=== PATIENT | male | born 1970 | race Two or more races ===

== ENCOUNTER 2020-09-11 16:04 | Inpatient (IN) | payer MEDICAID ==
[~2020-09-11] VITALS: Ht 167.6 cm; Wt 74.8 kg
[2020-09-11 16:10] VITALS: BP 142/80
[2020-09-11] MEDS ORDERED: dexAMETHasone 10mg/ml Inj IV ONE (16:15)
--- NOTE | 2020-09-11 16:20 | Emergency Room Report ---
History of Present Illness General Chief Complaint: Fever Source: Patient (Neeraj Medina) Present Illness HPI 49-year-old male who reports not having any past medical history brought in by paramedics due to SOB and reports that is Covid positive beginning of August 2020. Patient reports that he has been having a cough for several weeks now which has been subsiding Robitussin however has been feeling short of breath for 5 days and started feeling worse today. Denies any fever and chills, congestion at this time. Reports few bouts of nonbloody diarrhea in the past few days. Other than retesting has not taken any medication. Denies tobacco smoke, drug use, alcohol intake. Denies recent travel. Reports that has been self isolating during this whole time. Patient appears to have oxygenation of 94% room air, first placed on nasal cannula and was then changed to nonrebreather. 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 COVID-19 Screening: Positive COVID-19 COVID-19 Testing Source: nasal (Neeraj Medina) Patient History Past Medical History: see triage record Past Surgical History: none Pertinent Family History: none Immunizations: UTD Reviewed Nursing Documentation: PMH: Agreed; PSxH: Agreed (Neeraj Medina) Review of Systems All Other Systems: negative except mentioned in HPI (Neeraj Medina) Physical Exam Vital Signs Date Time Temp Pulse Resp B/P (MAP) Pulse Ox O2 Delivery O2 Flow Rate FiO2 09/11/20 16:01 99.9 108 20 142/80 (100) 94 Nasal Cannula Sp02 EP Interpretation: abnormal - O2 sat 94% General Appearance: no apparent distress, alert, GCS 15, non-toxic Head: normocephalic, atraumatic Eyes: bilateral eye normal inspection, bilateral eye PERRL ENT: hearing grossly normal, normal pharynx, no angioedema, normal voice Neck: full range of motion, supple/symm/no masses Respiratory: chest non-tender, lungs clear, normal breath sounds, speaking full sentences Cardiovascular #1: regular rate, rhythm, no edema Cardiovascular #2: 2+ carotid (R), 2+ carotid (L), 2+ radial (R), 2+ radial (L), 2+ dorsalis pedis (R), 2+ dorsalis pedis (L) Gastrointestinal: normal bowel sounds, non tender, soft, non-distended, no guarding, no rebound Rectal: deferred Genitourinary: no CVA tenderness Musculoskeletal: back normal, no calf tenderness Neurologic: alert, motor strength/tone normal, oriented x3, sensory intact, responsive, speech normal Skin: no rash Lymphatic: no adenopathy (Neeraj Medina) Procedures Critical Care Time Critical Care Time Total critical care time; approximately [45] minutes. Due to a high probability of clinically significant, life threatening deterioration, the patient required my highest level of preparedness to intervene emergently and I personally spent this critical care time directly and personally managing the patient. This critical care time included obtaining a history; examining the patient; pulse oximetry; ordering and reviewing of studies; arranging urgent treatment with development of a management plan; evaluation of patient's response to treatment; frequent reassessment; and, discussions with other providers. This critical care time was performed to assess and manage the high probability of imminent, life-threatening deterioration that could result in multiorgan failure it was exclusive of separate billable procedures and treating other patients and teaching time. Please see MDM section and the rest of the note for further information on patient assessment and treatment. (Neeraj Medina) Medical Decision Making PA Attestation All diagnoses and treatment plans were reviewed and discussed with my supervising physician Dr. Dias (Neeraj Medina) PA Attestation I participated in the care of this patient along with SANJAY Bedoya Briefly, 49-year-old male with no reported medical history presenting for respiratory distress and hypoxia. He arrives by EMS from home. Tested positive for COVID-19 on 09/02. Worsening respiratory symptoms. Chest x-ray shows diffuse bilateral infiltrates. Rapid COVID-19 swab is negative though all inflammatory markers are positive as is D-dimer. Patient given Lovenox, antibiotics, dexamethasone, 30 cc/kg IV fluid bolus for elevated lactate at 3.10. Initial blood gas showed mild hypoxemia though for work of breathing and diffuse infiltrates the patient was started on BiPAP. He will be admitted to panel physician, Dr. Petersen, to the SDU. (Antonio Dias MD) Diagnostic Impression: Primary Impression: Pneumonia due to COVID-19 virus Additional Impression: Hypoxia ER Course 49-year-old male who reports not having any past medical history brought in by paramedics due to SOB and reports that is Covid positive beginning of August 2020. Patient reports that he has been having a cough for several weeks now which has been subsiding Robitussin however has been feeling short of breath for 5 days and started feeling worse today. Denies any fever and chills, congestion at this time. Reports few bouts of nonbloody diarrhea in the past few days. Other than retesting has not taken any medication. Denies tobacco smoke, drug use, alcohol intake. Denies recent travel. Reports that has been self isolating during this whole time. Patient appears to have oxygenation of 94% room air, first placed on nasal cannula and was then changed to nonrebreather. Denies pleuritic chest pain Ddx considered but are not limited to: Respiratory distress due to Covid, bronchitis, PNA, URI viral, bacterial bronchitis Vital signs: are WNL, pt. is afebrile H&PE are most consistent with: Hypoxia, covid PNA ORDERS: ER Covid order set ED INTERVENTIONS: NS bolus, dexamethasone, Rocephin, azithromycin, Lovenox Patient was admitted with diagnosis of Covid pneumonia, hypoxia to Dr. Petersen under supervision of : Arun pt stable at time of admission (Neeraj Medina) EKG Diagnostic Results Rate: normal Rhythm: NSR ST Segments: no acute changes Other Impression No acute ST changes ASA given to the pt in ED: No (Neeraj Medina) Chest X-Ray Diagnostic Results Chest X-Ray Diagnostic Results : Chest X-Ray Ordered: Yes # of Views/Limited/Complete: 1 View Indication: Shortness of Breath EP Interpretation: Yes PA Xray: Interpretation reviewed, by supervising MD, and agrees with findings. Interpretation: other - PNA Impression: Other - PNA Electronically Signed by: Neeraj GRACE Scribe Text FINDINGS: Lungs: Extensive airspace opacities throughout the lungs bilaterally. Pleural space:No pleural effusion. No pneumothorax. Heart:Unremarkable. No cardiomegaly. Bones/joints:Unremarkable. IMPRESSION: Extensive airspace opacities throughout the lungs bilaterally. Appearance is concerning for widespread infection or alveolar edema. Radiologist: Gabriel Nava MD Electronically Signed: 09/11/20 17:07 Phone: [phone] (Neeraj Medina) Last Vital Signs Date Time Temp Pulse Resp B/P (MAP) Pulse Ox O2 Delivery O2 Flow Rate FiO2 09/11/20 16:01 99.9 108 20 142/80 (100) 94 Nasal Cannula (Neeraj Medina) Disposition: ADMITTED INPATIENT Condition: Serious Neeraj Medina Sep 11, 2020 16:20 Antonio Dias MD Sep 11, 2020 17:45
[2020-09-11 16:48] LABS: HEMATOCRIT 40.9 % (42.0-52.0); HEMOGLOBIN 13.8 G/DL (14.2-18.0); MEAN CORPUSCULAR VOLUME 89 FL (80-99); PLATELET COUNT 169 K/UL (150-450); RED BLOOD COUNT 4.61 M/UL (4.70-6.10); RED CELL DISTRIBUTION WIDTH 11.9 % (11.6-14.8); WHITE BLOOD COUNT 6.9 K/UL (4.8-10.8)
[2020-09-11 16:49] LABS: APPEARANCE,URINE SLIGHTLY CLOUDY; BASOPHILS % (AUTO) 0.4 % (0.0-2.0); BILIRUBIN, URINE NEGATIVE (NEGATIVE); EOSINOPHILS % (AUTO) 0.1 % (0.0-3.0); GLUCOSE, URINE (UA) 4+ (NEGATIVE); KETONES,URINE 2+ (NEGATIVE); LEUKOCYTE ESTERASE ,URINE NEGATIVE (NEGATIVE); LYMPHOCYTES % (AUTO) 8.4 % (20.0-45.0); MONOCYTES % (AUTO) 3.7 % (1.0-10.0); NEUTROPHILS % (AUTO) 87.4 % (45.0-75.0); NITRITE,URINE NEGATIVE (NEGATIVE); PH,URINE 6 (4.5-8.0); PROTEIN,URINE 3+ (NEGATIVE); UROBILINOGEN,URINE 4 MG/DL (0.0-1.0)
[2020-09-11 16:50] LABS: COLOR,URINE YELLOW
[2020-09-11] MEDS ORDERED: cefTRIAXone 1 GM in NS 55 ML IVPB ONE (17:00)
[2020-09-11] MEDS ORDERED: Azithromycin 500 MG in NS 275 ML IV ONE (17:00)
[2020-09-11 17:02] LABS: ANION GAP 9 mmol/L (5-15); BLOOD UREA NITROGEN 11 mg/dL (7-18); CALCIUM 7.7 MG/DL (8.5-10.1); CARBON DIOXIDE 26 MMOL/L (21-32); CHLORIDE 97 MMOL/L (98-107); CREATININE 1.1 MG/DL (0.55-1.30); POTASSIUM 3.4 MMOL/L (3.5-5.1); SODIUM 132 MMOL/L (136-145)
--- NOTE | 2020-09-11 17:08 | Diagnostic Imaging Report ---
EXAM: XR Chest, 1 View CLINICAL HISTORY: SOB TECHNIQUE: Frontal view of the chest. COMPARISON: No relevant prior studies available. FINDINGS: Lungs: Extensive airspace opacities throughout the lungs bilaterally. Pleural space: No pleural effusion. No pneumothorax. Heart: Unremarkable. No cardiomegaly. Bones/joints: Unremarkable. IMPRESSION: Extensive airspace opacities throughout the lungs bilaterally. Appearance is concerning for widespread infection or alveolar edema.
[2020-09-11 17:33] LABS: ALANINE AMINOTRANSFERASE 46 U/L (12-78); ALBUMIN 2.3 G/DL (3.4-5.0); ALBUMIN/GLOBULIN RATIO 0.5 (1.0-2.7); ALKALINE PHOSPHATASE 52 U/L (46-116); ASPARTATE AMINO TRANSFERASE 62 U/L (15-37); BILIRUBIN,TOTAL 0.7 MG/DL (0.2-1.0); CKMB 1.1 NG/ML (0.0-3.6); CREATINE KINASE 330 U/L (26-308); FERRITIN > 2000 NG/ML (8-388); LACTATE DEHYDROGENASE 822 U/L (81-234)
[2020-09-11] MEDS ORDERED: Enoxaparin 40mg Inj SUBQ SCH (17:45)
[2020-09-11] MEDS ORDERED: Sodium Chloride 2,200 ML IVLG ONE (17:45)
[2020-09-11] MEDS ORDERED: Enoxaparin 40mg Inj SUBQ ONE (18:00)
[2020-09-11 19:18] VITALS: BP 146/78
[2020-09-11] MEDS ORDERED: Acetaminophen 500mg (ES) tab ORAL PRN (20:15)
[2020-09-11] MEDS ORDERED: Milk of Magnesia 30ml Ud ORAL PRN (20:15)
[2020-09-11] MEDS ORDERED: Loading Dose:Remdesivir 200mg/NS 210ml IV SCH ×2 (22:00)
[2020-09-12] VITALS (7 sets, daily range): BP systolic 115–135; BP diastolic 61–88
[2020-09-12 05:36] LABS: HEMOGLOBIN 13.3 G/DL (14.2-18.0); MEAN CORPUSCULAR VOLUME 92 FL (80-99); PLATELET COUNT 168 K/UL (150-450); RED BLOOD COUNT 4.25 M/UL (4.70-6.10); WHITE BLOOD COUNT 6.3 K/UL (4.8-10.8)
[2020-09-12 05:37] LABS: BASOPHILS % (AUTO) 0.1 % (0.0-2.0); LYMPHOCYTES % (AUTO) 10.1 % (20.0-45.0); MONOCYTES % (AUTO) 3.5 % (1.0-10.0); NEUTROPHILS % (AUTO) 86.3 % (45.0-75.0)
[2020-09-12 06:06] LABS: ALANINE AMINOTRANSFERASE 43 U/L (12-78); ALBUMIN 2.1 G/DL (3.4-5.0); ALBUMIN/GLOBULIN RATIO 0.5 (1.0-2.7); ALKALINE PHOSPHATASE 49 U/L (46-116); ANION GAP 9 mmol/L (5-15); ASPARTATE AMINO TRANSFERASE 56 U/L (15-37); BILIRUBIN,TOTAL 0.6 MG/DL (0.2-1.0); BLOOD UREA NITROGEN 9 mg/dL (7-18); CALCIUM 7.4 MG/DL (8.5-10.1); CARBON DIOXIDE 25 MMOL/L (21-32); CHLORIDE 104 MMOL/L (98-107); CREATININE 0.9 MG/DL (0.55-1.30); POTASSIUM 3.8 MMOL/L (3.5-5.1); SODIUM 137 MMOL/L (136-145)
--- NOTE | 2020-09-12 09:15 | History and Physical Report ---
DATE OF ADMISSION: 09/11/2020 CHIEF COMPLAINT: COVID-19 pneumonia. HISTORY OF PRESENT ILLNESS: The patient is a 49-year-old male. He has no past medical history. Apparently developed cough and fevers 5 days ago. He went to go get tested COVID and was positive. He did well until several days prior to admission but when he began to develop worsening shortness of breath and cough he presented to the emergency room where he had x-ray with diffuse pulmonary infiltrates. He required supplemental oxygen, eventually on BiPAP, and is now admitted for further evaluation and care. PAST MEDICAL HISTORY: None. PAST SURGICAL HISTORY: None. CURRENT MEDICATIONS: None. FAMILY HISTORY: None. SOCIAL HISTORY: Negative for tobacco, ethanol, or drugs. REVIEW OF SYSTEMS: Negative except for cough, fevers, and shortness of breath. PHYSICAL EXAMINATION: VITAL SIGNS: Temperature 97.2, pulse 86, respirations 22, blood pressure 116/62. GENERAL: The patient is well-developed, no apparent distress. HEART: Regular rate and rhythm. LUNGS: Clear. ABDOMEN: Soft, nontender, and nondistended. EXTREMITIES: Without clubbing, cyanosis, or edema. LABORATORY DATA: Sodium 132, potassium 3.4. greater than 2000. C-reactive protein was 36. Chest x-ray showed bilateral infiltrates. ASSESSMENT: This is a 49-year-old male with no past medical history who presents with hypoxic respiratory failure and COVID-19 pneumonia. PLAN: IV Remdesivir and steroids, BiPAP and supplemental oxygen as needed. DVT and stress ulcer prophylaxes. Melecio Petersen M.D. DR: Sherrie JOB#: [id number] CC:
[2020-09-12] MEDS: Enoxaparin 40mg Inj SUBQ SCH (09:16)
--- NOTE | 2020-09-12 14:44 | Consultation ---
DATE OF CONSULTATION: 09/12/2020 INFECTIOUS DISEASES CONSULTATION CONSULTING PHYSICIAN: Berta Sommer MD REFERRING PHYSICIAN: Melecio Petersen MD REASON FOR CONSULTATION: COVID-19 pneumonia. HISTORY OF PRESENTING ILLNESS: This is a 49-year-old gentleman with no past medical history, who developed a cough and fevers. He went to get tested for COVID and it was positive. He started having increasing shortness of breath and cough. He was found to have a pneumonia. Now, he is on a BiPAP and an Infectious Diseases consultation has been obtained for antibiotics. PAST MEDICAL HISTORY: Nothing significant. SOCIAL HISTORY: He does not smoke, drink, or use drugs. FAMILY HISTORY: Unknown. REVIEW OF SYSTEMS: Unable to obtain currently. MEDICATIONS: As an inpatient, he was started on remdesivir yesterday, enoxaparin, dexamethasone, milk of magnesia, Zofran, Tylenol. ALLERGIES: No known drug allergies. PHYSICAL EXAMINATION: VITAL SIGNS: Temperature of 96.3, T-max of 99.9, pulse of 89, respiratory rate 24, blood pressure 115/72, O2 saturation of 100% on BiPAP of 100%. Examination deferred due to COVID-19. LABORATORY AND DIAGNOSTIC DATA: White count 6.3, hemoglobin 13.3, hematocrit 39, MCV 92, platelet count of 168 with neutrophils of 86%. Sodium 137, potassium 3.8, chloride 104, bicarb 25, BUN 9, creatinine 0.9, glucose 187, calcium 7.4. Total bilirubin 0.6, AST 56, ALT 43, and alkaline phosphatase 49. Total protein 6.7, albumin 2.1. Troponin 0. CK-MB 0.3, CK of 330. LDH 822. Lipase of 289. UA is showing 0 to 2 white cells. COVID-19 test on 09/11/2020 is negative here. Chest x-ray is showing extensive airspace opacities throughout the lungs bilaterally concerning for infection or alveolar edema. ASSESSMENT: This is a 49-year-old gentleman with no significant past medical history, who comes in with cough and shortness of breath and is found to have. 1. COVID-19 pneumonia. He is on a BiPAP of 100% with 100% O2 saturation. 2. Respiratory failure. PLAN: 1. Continue remdesivir that was started, day #2 now. 2. Continue dexamethasone, day #2. 3. Continue isolation. 4. We will follow up cultures. I would like to thank, Dr. Petersen, for this consultation. Tram[place] David Sommer DR: GIAN JOB#: [id number] CC: Melecio Petersen M.D.
[2020-09-12] MEDS: Maintenance Dose:Remdesivir 100mg/NS 230ml x 4 Doses IV SCH ×2 (22:15)
[2020-09-13] VITALS: BP 101/57
[2020-09-13 04:00] VITALS: BP 130/63
[2020-09-13 05:49] LABS: HEMATOCRIT 39.2 % (42.0-52.0); HEMOGLOBIN 13.2 G/DL (14.2-18.0); MEAN CORPUSCULAR VOLUME 92 FL (80-99); PLATELET COUNT 230 K/UL (150-450); RED BLOOD COUNT 4.28 M/UL (4.70-6.10); RED CELL DISTRIBUTION WIDTH 12.3 % (11.6-14.8)
[2020-09-13] MEDS: guaiFENesin /DM 10ml syrup ORAL PRN ×2 (06:24→11:51)
[2020-09-13 06:41] LABS: ALANINE AMINOTRANSFERASE 45 U/L (12-78); ALBUMIN 2.1 G/DL (3.4-5.0); ALBUMIN/GLOBULIN RATIO 0.5 (1.0-2.7); ALKALINE PHOSPHATASE 63 U/L (46-116); ANION GAP 8 mmol/L (5-15); ASPARTATE AMINO TRANSFERASE 56 U/L (15-37); BILIRUBIN,DIRECT 0.1 MG/DL (0.0-0.3); BILIRUBIN,TOTAL 0.5 MG/DL (0.2-1.0); BLOOD UREA NITROGEN 17 mg/dL (7-18); CALCIUM 7.9 MG/DL (8.5-10.1); CARBON DIOXIDE 26 MMOL/L (21-32); CHLORIDE 105 MMOL/L (98-107); CREATININE 0.9 MG/DL (0.55-1.30); POTASSIUM 3.8 MMOL/L (3.5-5.1); SODIUM 139 MMOL/L (136-145)
[2020-09-13 08:00] VITALS: BP 120/80
--- NOTE | 2020-09-13 08:42 | General Progress Note ---
Subjective ROS Limited/Unobtainable: No Constitutional: Reports: malaise, weakness HEENT: Reports: no symptoms Cardiovascular: Reports: no symptoms Respiratory: Reports: no symptoms Gastrointestinal/Abdominal: Reports: no symptoms Genitourinary: Reports: no symptoms Neurologic/Psychiatric: Reports: no symptoms Endocrine: Reports: no symptoms Hematologic/Lymphatic: Reports: no symptoms Allergies: Coded Allergies: No Known Allergies (Unverified , 09/11/20) All Systems: reviewed and negative except above Objective Last 24 Hour Vital Signs Date Time Temp Pulse Resp B/P (MAP) Pulse Ox O2 Delivery O2 Flow Rate FiO2 09/13/20 04:00 Bi-pap 09/13/20 04:00 97.5 66 31 130/63 (85) 96 09/13/20 04:00 100 09/13/20 03:28 61 09/13/20 02:40 68 31 96 100 09/13/20 00:04 63 09/13/20 00:00 97.8 69 25 101/57 (72) 97 09/13/20 00:00 Bi-pap 09/12/20 23:11 60 35 97 100 09/12/20 20:00 100 09/12/20 20:00 78 09/12/20 20:00 97.7 65 25 115/72 (86) 97 09/12/20 20:00 Bi-pap 09/12/20 18:40 59 33 96 100 09/12/20 16:00 Bi-pap 09/12/20 16:00 100 09/12/20 16:00 96.6 62 22 115/72 (86) 98 09/12/20 16:00 56 09/12/20 14:39 67 45 99 100 09/12/20 12:00 Bi-pap 09/12/20 12:00 97.9 64 20 135/88 (104) 95 09/12/20 12:00 100 09/12/20 11:36 64 09/12/20 11:25 62 48 94 100 09/12/20 09:33 96.3 89 24 115/72 (86) 100 Intake and Output 09/12/20 09/13/20 19:00 07:00 Intake Total 800 ml 1789 ml Output Total 500 ml 300 ml Balance 300 ml 1489 ml Intake Oral 200 ml 350 ml IV Total 600 ml 1439 ml Output Urine Total 500 ml 300 ml # Bowel Movements 1 1 Laboratory Tests 09/12/20 11:43: Arterial Blood pH 7.442, Arterial Blood Partial Pressure CO2 31.6L, Arterial Blood Partial Pressure O2 80.0, Arterial Blood HCO3 21.1L, Arterial Blood Oxygen Saturation 95.9, Arterial Blood Base Excess -2.1L, Robin Test Positive 09/13/20 03:28: White Blood Count 12.0#H, Red Blood Count 4.28L, Hemoglobin 13.2L, Hematocrit 39.2L, Mean Corpuscular Volume 92, Mean Corpuscular Hemoglobin 30.9, Mean Corpuscular Hemoglobin Concent 33.7, Red Cell Distribution Width 12.3, Platelet Count 230, Mean Platelet Volume 7.1, Neutrophils (%) (Auto) , Lymphocytes (%) (Auto) , Monocytes (%) (Auto) , Eosinophils (%) (Auto) , Basophils (%) (Auto) , Sodium Level 139, Potassium Level 3.8, Chloride Level 105, Carbon Dioxide Level 26, Anion Gap 8, Blood Urea Nitrogen 17, Creatinine 0.9, Estimat Glomerular Filtration Rate > 60, Glucose Level 170H, Calcium Level 7.9L, Total Bilirubin 0.5, Direct Bilirubin 0.1, Aspartate Amino Transf (AST/SGOT) 56H, Alanine Aminot ransferase (ALT/SGPT) 45, Alkaline Phosphatase 63, Total Protein 6.7, Albumin 2.1L, Globulin 4.6, Albumin/Globulin Ratio 0.5L Height (Feet): 5 Height (Inches): 6.00 Weight (Pounds): 165 Objective deferred due to covid + status Assessment/Plan Problem List: (1) Pneumonia due to COVID-19 virus ICD Codes: U07.1 - COVID-19; J12.89 - Other viral pneumonia SNOMED: 838506378448500084 (2) Hypoxia ICD Codes: R09.02 - Hypoxemia; J12.89 - Other viral pneumonia SNOMED: 479156617 Status: stable Assessment/Plan: cont current bipap wean as able anxiolytics dvt/stress ulcer prophylaxis Melecio Petersen MD Sep 13, 2020 08:42
[2020-09-13] MEDS: Enoxaparin 40mg Inj SUBQ SCH (09:07)
--- NOTE | 2020-09-13 11:23 | Infectious Diseases Prog Note ---
Assessment/Plan Assessment/Plan antibiotics : remdesivir A 1. COVID 19 pneumonia on bipap 100 percent, saturation 94 percent 2. respiratory failure P 1. continue remdesivir day 3 2. continue dexamethasone day 3 3. continue isolation Subjective Constitutional: Denies: fever, chills Respiratory: Reports: shortness of breath, dry cough - decreased Gastrointestinal/Abdominal: Denies: nausea, vomiting, diarrhea Musculoskeletal: Denies: pain Allergies: Coded Allergies: No Known Allergies (Unverified , 09/11/20) Objective Last 24 Hour Vital Signs Date Time Temp Pulse Resp B/P (MAP) Pulse Ox O2 Delivery O2 Flow Rate FiO2 09/13/20 08:00 Bi-pap 09/13/20 08:00 100 09/13/20 08:00 98.2 61 31 120/80 (93) 94 09/13/20 07:55 60 33 99 100 09/13/20 04:00 Bi-pap 09/13/20 04:00 97.5 66 31 130/63 (85) 96 09/13/20 04:00 100 09/13/20 03:28 61 09/13/20 02:40 68 31 96 100 09/13/20 00:04 63 09/13/20 00:00 97.8 69 25 101/57 (72) 97 09/13/20 00:00 Bi-pap 09/12/20 23:11 60 35 97 100 09/12/20 20:00 100 09/12/20 20:00 78 09/12/20 20:00 97.7 65 25 115/72 (86) 97 09/12/20 20:00 Bi-pap 09/12/20 18:40 59 33 96 100 09/12/20 16:00 Bi-pap 09/12/20 16:00 100 09/12/20 16:00 96.6 62 22 115/72 (86) 98 09/12/20 16:00 56 09/12/20 14:39 67 45 99 100 09/12/20 12:00 Bi-pap 09/12/20 12:00 97.9 64 20 135/88 (104) 95 09/12/20 12:00 100 09/12/20 11:36 64 09/12/20 11:25 62 48 94 100 Height (Feet): 5 Height (Inches): 6.00 Weight (Pounds): 165 Microbiology Date/Time Source Procedure Growth Status 09/11/20 16:20 Nasal Nares - Final Complete 09/11/20 16:20 Nasal Nares - Final Complete 09/11/20 16:20 Nasopharynx SARS-CoV-2 RdRp Gene Assay - Final Complete Laboratory Tests Test 09/12/20 11:43 09/13/20 03:28 Arterial Blood pH 7.442 (7.350-7.450) Arterial Blood Partial Pressure CO2 31.6 mmHg (35.0-45.0) L Arterial Blood Partial Pressure O2 80.0 mmHg (75.0-100.0) Arterial Blood HCO3 21.1 mmol/L (22.0-26.0) L Arterial Blood Oxygen Saturation 95.9 % (95-100) Arterial Blood Base Excess -2.1 (-2-2) L Robin Test Positive White Blood Count 12.0 K/UL (4.8-10.8) #H Red Blood Count 4.28 M/UL (4.70-6.10) L Hemoglobin 13.2 G/DL (14.2-18.0) L Hematocrit 39.2 % (42.0-52.0) L Mean Corpuscular Volume 92 FL (80-99) Mean Corpuscular Hemoglobin 30.9 PG (27.0-31.0) Mean Corpuscular Hemoglobin Concent 33.7 G/DL (32.0-36.0) Red Cell Distribution Width 12.3 % (11.6-14.8) Platelet Count 230 K/UL (150-450) Mean Platelet Volume 7.1 FL (6.5-10.1) Neutrophils (%) (Auto) % (45.0-75.0) Lymphocytes (%) (Auto) % (20.0-45.0) Monocytes (%) (Auto) % (1.0-10.0) Eosinophils (%) (Auto) % (0.0-3.0) Basophils (%) (Auto) % (0.0-2.0) Sodium Level 139 MMOL/L (136-145) Potassium Level 3.8 MMOL/L (3.5-5.1) Chloride Level 105 MMOL/L (98-107) Carbon Dioxide Level 26 MMOL/L (21-32) Anion Gap 8 mmol/L (5-15) Blood Urea Nitrogen 17 mg/dL (7-18) Creatinine 0.9 MG/DL (0.55-1.30) Estimat Glomerular Filtration Rate > 60 mL/min (>60) Glucose Level 170 MG/DL (74-106) H Calcium Level 7.9 MG/DL (8.5-10.1) L Total Bilirubin 0.5 MG/DL (0.2-1.0) Direct Bilirubin 0.1 MG/DL (0.0-0.3) Aspartate Amino Transf (AST/SGOT) 56 U/L (15-37) H Alanine Aminotransferase (ALT/SGPT) 45 U/L (12-78) Alkaline Phosphatase 63 U/L (46-116) Total Protein 6.7 G/DL (6.4-8.2) Albumin 2.1 G/DL (3.4-5.0) L Globulin 4.6 g/dL Albumin/Globulin Ratio 0.5 (1.0-2.7) L Current Medications Medications (Trade) Dose Ordered Sig/Laurence Route PRN Reason Start Time Stop Time Status Last Admin Dose Admin Acetaminophen (Tylenol) 500 mg Q4H PRN ORAL Mild Pain (Pain Scale 1-3) 09/11/20 20:15 10/11/20 20:14 09/13/20 02:21 Dexamethasone (Decadron) 6 mg DAILY ORAL 09/12/20 09:00 09/20/20 09:01 09/13/20 09:06 Enoxaparin Sodium (Lovenox) 40 mg DAILY SUBQ 09/12/20 09:00 12/11/20 08:59 09/13/20 09:07 Guaifenesin/ Dextromethorphan (Robitussin DM Syrup) 5 ml Q4H PRN ORAL For Cough 09/12/20 21:00 12/11/20 20:59 09/13/20 06:24 Lorazepam (Ativan) 1 mg Q6H PRN ORAL For Anxiety 09/13/20 08:48 09/20/20 08:47 Magnesium Hydroxide (Mom) 30 ml DAILYPRN PRN ORAL Constipation 09/11/20 20:15 10/11/20 20:14 Ondansetron HCl (Zofran) 4 mg Q6H PRN IVP Nausea & Vomiting 09/11/20 20:15 10/11/20 20:14 Remdesivir 100 mg/ Sodium Chloride 250 ml @ 250 mls/hr Q24H IV 09/12/20 22:00 09/15/20 22:59 09/12/20 22:15 Sodium Chloride 1,000 ml @ 75 mls/hr [id number] IV 09/11/20 20:15 10/11/20 20:14 09/12/20 22:29 Berta Sommer MD Sep 13, 2020 11:23
[2020-09-13] MEDS: LORazepam 1mg tab ORAL PRN ×2 (11:51→18:32)
[2020-09-13 12:00] VITALS: BP 146/81
[2020-09-13 16:00] VITALS: BP 132/88
[2020-09-13] MEDS ORDERED: Tubing IV Secondary IV ONE (19:34)
[2020-09-13 20:00] VITALS: BP 125/88
[2020-09-13] MEDS: Maintenance Dose:Remdesivir 100mg/NS 230ml x 4 Doses IV SCH ×2 (21:27)
[2020-09-14] VITALS: BP 118/78
[2020-09-14] MEDS: LORazepam 1mg tab ORAL PRN (01:05)
[2020-09-14 04:00] VITALS: BP 141/71
[2020-09-14] MEDS ORDERED: Morphine Sulfate 2mg/ml Inj(IV/IM USE ONLY) IVP PRN (05:30)
[2020-09-14 06:27] LABS: HEMATOCRIT 42.7 % (42.0-52.0); MEAN CORPUSCULAR VOLUME 93 FL (80-99); PLATELET COUNT 138 K/UL (150-450); RED BLOOD COUNT 4.59 M/UL (4.70-6.10); RED CELL DISTRIBUTION WIDTH 12.6 % (11.6-14.8); WHITE BLOOD COUNT 12.4 K/UL (4.8-10.8)
--- NOTE | 2020-09-14 06:55 | Emergency Room Report ---
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 COVID-19 Screening: Negative COVID-19 COVID-19 Testing Source: [facility] Nursing Documentation-[facility] Past Medical History: No Stated History Physical Exam Vital Signs Date Time Temp Pulse Resp B/P (MAP) Pulse Ox O2 Delivery O2 Flow Rate FiO2 09/11/20 16:01 99.9 108 20 142/80 (100) 94 Nasal Cannula 09/11/20 16:10 15.0 09/11/20 18:20 100 Procedures Intubation Intubation : Consent: Emergent Tube Size (cm): 7.5 Medications: Etomidate, Rocuronium Breath Sounds after Intubation: equal Intubation Complications: no complications Post Intubation Xray: Yes Attempts: One Patient Tolerated: Well Complications: None Medical Decision Making Diagnostic Impression: Primary Impression: Pneumonia due to COVID-19 virus Additional Impression: Hypoxia ER Course I was called to the ICU to evaluate the patient for possible intubation. When I arrived the patient was maxed out on BiPAP with 100% FiO2. Despite this the patient was highly tachypneic with an oxygen saturation in the low 80s. Patient was immediately moved to the intensive care unit where I performed endotracheal intubation under video laryngoscopy as described above. 7.5 cm endotracheal tube was placed at 23 cm at the lip. No complications. Total critical care time: Approximately 25 minutes Due to a high probability of clinically significant, life threatening deterioration, the patient required the highest level of preparedness to intervene emergently and I personally spent this critical care time directly and personally managing the patient. This critical care time included obtaining a history, examining the patient, pulse oximetry, ordering and reviewing studies, ordering treatments, evaluating response to treatment and updating management plan as needed, frequent reassessment and discussion with other providers as well as arranging for ultimate disposition. This critical to care time was performed to assess and manage the high probability of life-threatening deterioration that could result in multiorgan failure. This critical care time is separate from the separately billable procedures and treating other patients. Last Vital Signs Date Time Temp Pulse Resp B/P (MAP) Pulse Ox O2 Delivery O2 Flow Rate FiO2 09/14/20 06:03 98.0 09/14/20 04:00 Bi-pap 09/14/20 04:00 100 09/14/20 04:00 72 26 141/71 (94) 96 09/11/20 20:40 15.0 Disposition: ADMITTED INPATIENT Condition: Serious Scripts No Active Prescriptions or Reported Meds Referrals: NOT CHOSEN IPA/,REFERRING (PCP) Asher Maria M.D. Sep 14, 2020 06:55
[2020-09-14 07:00] VITALS: BP 234/121
[2020-09-14 07:28] LABS: ALANINE AMINOTRANSFERASE 46 U/L (12-78); ALBUMIN 2.2 G/DL (3.4-5.0); ALBUMIN/GLOBULIN RATIO 0.5 (1.0-2.7); ALKALINE PHOSPHATASE 93 U/L (46-116); ANION GAP 10 mmol/L (5-15); ASPARTATE AMINO TRANSFERASE 70 U/L (15-37); BILIRUBIN,DIRECT 0.2 MG/DL (0.0-0.3); BILIRUBIN,TOTAL 0.8 MG/DL (0.2-1.0); BLOOD UREA NITROGEN 17 mg/dL (7-18); CALCIUM 8.1 MG/DL (8.5-10.1); CARBON DIOXIDE 24 MMOL/L (21-32); CHLORIDE 104 MMOL/L (98-107); CREATININE 0.9 MG/DL (0.55-1.30); POTASSIUM 3.9 MMOL/L (3.5-5.1); SODIUM 138 MMOL/L (136-145)
[2020-09-14 07:30] VITALS: BP 173/121
--- NOTE | 2020-09-14 07:34 | Diagnostic Imaging Report ---
EXAM: XR Chest, 1 View CLINICAL HISTORY: SOB TECHNIQUE: Frontal view of the chest. COMPARISON: Chest radiograph September 11, 2020. FINDINGS/IMPRESSION: Extensive bilateral airspace consolidations, consistent with severe infiltrate. These are similar in appearance to September 11, 2020. Follow-up chest radiograph recommended. No definite pleural effusion however, trace effusions cannot be excluded. No pneumothorax. Cardiomegaly.
[2020-09-14] MEDS ORDERED: Midazolam for drip 50 MG in NS 90 ML IV PRN (07:45)
[2020-09-14 08:00] VITALS: BP 113/64
[2020-09-14] MEDS ORDERED: EPINEPHrine 1 MG in D5W 250ml IV SCH (08:45)
--- NOTE | 2020-09-14 08:47 | Critical Care Progress Note ---
Assessment/Plan Assessment/Plan acute hypoxemic respiratory failure covid pneumonia ARDS PLAN vent sedate DVT prophylaxis Remdesivir Decadron ? convalescent plasma d/w ID medications/laboratory data/nursing notes/ICU care reviewed in detail note reviewed and edited care discussed with RN and RT ICU time spent >40 minutes Critical Care - Subjective Interval Events: care noted transferred to ICU now intubated on 100% Condition: critical EKG Rhythm: Sinus Tachycardia I&O: Intake and Output 09/13/20 09/14/20 19:00 07:00 Intake Total 75 ml 1071.25 ml Output Total 800 ml 1025 ml Balance -725 ml 46.25 ml IV Total 75 ml 1071.25 ml Output Urine Total 800 ml 1025 ml # Bowel Movements 2 Critical Care - Objective Last 24 Hour Vital Signs Date Time Temp Pulse Resp B/P (MAP) Pulse Ox O2 Delivery O2 Flow Rate FiO2 09/14/20 06:57 78 19 100 09/14/20 06:03 98.0 09/14/20 04:00 Bi-pap 09/14/20 04:00 100 09/14/20 04:00 98.0 72 26 141/71 (94) 96 09/14/20 03:31 79 09/14/20 03:25 78 33 94 100 09/14/20 01:35 74 22 138/78 98 09/14/20 01:05 73 22 116/72 99 09/14/20 00:02 69 09/14/20 00:00 Bi-pap 09/14/20 00:00 100 09/14/20 00:00 97.9 69 22 118/78 (91) 99 09/13/20 23:03 76 35 93 100 09/13/20 20:00 98.2 69 22 125/88 (100) 98 09/13/20 20:00 100 09/13/20 20:00 Bi-pap 09/13/20 19:33 62 09/13/20 19:30 66 38 92 100 09/13/20 19:02 65 26 125/88 88 09/13/20 18:32 69 26 142/78 94 09/13/20 16:00 97.7 64 22 132/88 (103) 95 09/13/20 16:00 57 09/13/20 16:00 95 09/13/20 16:00 Bi-pap 09/13/20 15:05 67 37 95 100 09/13/20 12:21 69 22 146/81 99 09/13/20 12:00 95 09/13/20 12:00 88 09/13/20 12:00 Bi-pap 09/13/20 12:00 98.6 69 26 146/81 (102) 94 09/13/20 11:51 78 26 146/81 98 09/13/20 11:43 66 41 95 100 Labs: deferred due to COVID Micro: Microbiology Date/Time Source Procedure Growth Status 09/11/20 16:20 Nasal Nares - Final Complete 09/11/20 16:20 Nasal Nares - Final Complete 09/11/20 16:20 Nasopharynx SARS-CoV-2 RdRp Gene Assay - Final Complete 09/11/20 16:20 Blood Blood Culture - Preliminary NO GROWTH AFTER 48 HOURS Resulted 09/11/20 16:05 Blood Blood Culture - Preliminary NO GROWTH AFTER 48 HOURS Resulted Estevan Prakash MD Sep 14, 2020 08:47
[2020-09-14] MEDS ORDERED: Norepinephrine 4mg/NS Premix 250 ML ONE (08:57)
--- NOTE | 2020-09-14 08:59 | General Progress Note ---
Subjective Date patient seen: Sep 14, 2020 Time patient seen: 06:00 ROS Limited/Unobtainable: Yes Constitutional: Reports: no symptoms HEENT: Reports: no symptoms Cardiovascular: Reports: no symptoms Respiratory: Reports: cough, shortness of breath Gastrointestinal/Abdominal: Reports: no symptoms Genitourinary: Reports: no symptoms Neurologic/Psychiatric: Reports: no symptoms Endocrine: Reports: no symptoms Hematologic/Lymphatic: Reports: no symptoms Allergies: Coded Allergies: No Known Allergies (Unverified , 09/11/20) All Systems: reviewed and negative except above Subjective worsening hypoxemia and sob. on remdesivir and decadron. bipap dependent. Objective Last 24 Hour Vital Signs Date Time Temp Pulse Resp B/P (MAP) Pulse Ox O2 Delivery O2 Flow Rate FiO2 09/14/20 06:57 78 19 100 09/14/20 06:03 98.0 09/14/20 04:00 Bi-pap 09/14/20 04:00 100 09/14/20 04:00 98.0 72 26 141/71 (94) 96 09/14/20 03:31 79 09/14/20 03:25 78 33 94 100 09/14/20 01:35 74 22 138/78 98 09/14/20 01:05 73 22 116/72 99 09/14/20 00:02 69 09/14/20 00:00 Bi-pap 09/14/20 00:00 100 09/14/20 00:00 97.9 69 22 118/78 (91) 99 09/13/20 23:03 76 35 93 100 09/13/20 20:00 98.2 69 22 125/88 (100) 98 09/13/20 20:00 100 09/13/20 20:00 Bi-pap 09/13/20 19:33 62 09/13/20 19:30 66 38 92 100 09/13/20 19:02 65 26 125/88 88 09/13/20 18:32 69 26 142/78 94 09/13/20 16:00 97.7 64 22 132/88 (103) 95 09/13/20 16:00 57 09/13/20 16:00 95 09/13/20 16:00 Bi-pap 09/13/20 15:05 67 37 95 100 09/13/20 12:21 69 22 146/81 99 09/13/20 12:00 95 09/13/20 12:00 88 09/13/20 12:00 Bi-pap 09/13/20 12:00 98.6 69 26 146/81 (102) 94 09/13/20 11:51 78 26 146/81 98 09/13/20 11:43 66 41 95 100 Intake and Output 09/13/20 09/14/20 19:00 07:00 Intake Total 75 ml 1071.25 ml Output Total 800 ml 1025 ml Balance -725 ml 46.25 ml IV Total 75 ml 1071.25 ml Output Urine Total 800 ml 1025 ml # Bowel Movements 2 Laboratory Tests 09/14/20 04:34: Arterial Blood pH 7.461H, Arterial Blood Partial Pressure CO2 30.1L, Arterial Blood Partial Pressure O2 52.0L, Arterial Blood HCO3 21.0L, Arterial Blood Oxygen Saturation 86.3*L, Arterial Blood Base Excess -1.7, Robin Test Positive 09/14/20 05:50: White Blood Count 12.4H, Red Blood Count 4.59L, Hemoglobin 14.0L, Hematocrit 42.7, Mean Corpuscular Volume 93, Mean Corpuscular Hemoglobin 30.6, Mean Corpuscular Hemoglobin Concent 32.8, Red Cell Distribution Width 12.6, Platelet Count 138L, Mean Platelet Volume 8.1, Neutrophils (%) (Auto) , Lymphocytes (%) (Auto) , Monocytes (%) (Auto) , Eosinophils (%) (Auto) , Basophils (%) (Auto) , Neutrophils % (Manual) [Pending], Lymphocytes % (Manual) [Pending], Platelet Estimate [Pending], Platelet Morphology [Pending], Sodium Level 138, Potassium Level 3.9, Chloride Level 104, Carbon Dioxide Level 24, Anion Gap 10, Blood Urea Nitrogen 17, Creatinine 0.9, Estimat Glomerular Filtration Rate > 60, Glucose Level 148H, Calcium Level 8.1L, Total Bilirubin 0.8, Direct Bilirubin 0.2, Aspartate Amino Transf (AST/SGOT) 70H, Alanine Aminotransferase (ALT/SGPT) 46, Alkaline Phosphatase 93, Total Protein 6.7, Albumin 2.2L, Globulin 4.5, Albumin/Globulin Ratio 0.5L Height (Feet): 5 Height (Inches): 6.00 Weight (Pounds): 165 General Appearance: WD/WN, severe distress Cardiovascular: regular rhythm Respiratory/Chest: lungs clear, respiratory distress, accessory muscle use Abdomen: normal bowel sounds, non tender, soft Edema: no edema noted Arm (L), no edema noted Arm (R), no edema noted Leg (L), no edema noted Leg (R) Assessment/Plan Problem List: (1) Pneumonia due to COVID-19 virus ICD Codes: U07.1 - COVID-19; J12.89 - Other viral pneumonia SNOMED: 138451515087699966 (2) Hypoxia ICD Codes: R09.02 - Hypoxemia; J12.89 - Other viral pneumonia SNOMED: 095993186 Status: stable Assessment/Plan: abg noted worsening hypoxemia transfer to icu d/w ER . intubate remdesivir/steroids d/w dtr- pt is critical Melecio Petersen MD Sep 14, 2020 08:59
[2020-09-14] MEDS ORDERED: Atropine Inj 1mg/10ml Syr ONE (09:05)
[2020-09-14] MEDS ORDERED: Sodium Bicarbonate 8.4% 50ml Inj ONE (09:05)
--- NOTE | 2020-09-14 14:09 | Emergency Room Report ---
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 COVID-19 Screening: Negative COVID-19 COVID-19 Testing Source: [facility] Nursing Documentation-[facility] Past Medical History: No Stated History Physical Exam Vital Signs Date Time Temp Pulse Resp B/P (MAP) Pulse Ox O2 Delivery O2 Flow Rate FiO2 09/11/20 16:01 99.9 108 20 142/80 (100) 94 Nasal Cannula 09/11/20 16:10 15.0 09/11/20 18:20 100 Procedures Central Line Central Line : Consent: Emergent Central Line Lumen: triple Maximal Sterile Barrier Tech: yes cap, yes mask, yes sterile gown, yes sterile gloves, yes large sterile sheet No Max Barrier Tech Because: emergency insertion Central Line Postion: femoral (L) US Guided Line?: No Vessel visualized with U/S: Left Femoral Vein Complications: none Attempts: One Patient Tolerated: Well Medical Decision Making Diagnostic Impression: Primary Impression: Pneumonia due to COVID-19 virus Additional Impression: Hypoxia ER Course Was called to the ICU for CODE BLUE. Patient had episode of hypoxia and then had gradual bradycardia until he suffered asystolic cardiac arrest. See separate code sheet. Patient was coded for a total of approximately 45 minutes and received many doses of epinephrine, bicarb, calcium. Each pulse check revealed PEA or asystole. ROSC was briefly achieved at 1 point but patient was highly bradycardic in the 30s. He was given atropine without any resolution of the bradycardia. He then suffered cardiac arrest once again and CPR was continued. Emergent central line was placed in the left femoral vein without complication. Family was allowed to witness the end of CPR after approximately 45 minutes of continuous CPR and ACLS. Patient was declared . I spoke with the family and answered all questions. Last Vital Signs Date Time Temp Pulse Resp B/P (MAP) Pulse Ox O2 Delivery O2 Flow Rate FiO2 09/14/20 08:00 100 09/14/20 08:00 Mechanical Ventilator 09/14/20 08:00 86 23 113/64 (80) 90 09/14/20 07:30 100.9 09/11/20 20:40 15.0 Disposition: ADMITTED INPATIENT Condition: Serious Scripts No Active Prescriptions or Reported Meds Referrals: NOT CHOSEN IPA/,REFERRING (PCP) Asher Maria M.D. Sep 14, 2020 14:09
--- NOTE | 2020-09-15 14:53 | Diagnostic Imaging Report ---
Indication: Endotracheal intubation, respiratory failure Technique: Portable AP view of the chest Comparison: 09/14/2020, 6:23 Findings: Interval endotracheal intubation. Tip of ET tube at the level of the lower margin of the clavicles, approximately 6 cm above the sneha. No evidence of pneumothorax. No significant interval change in extensive bilateral interstitial and alveolar infiltrates. IMPRESSION: Interval endotracheal intubation. Tip of the ET tube approximately 6 cm above the nseha.
--- NOTE | 2020-09-15 15:07 | Discharge Summary ---
Discharge Summary Discharge Summary _ SUMMARY DATE OF ADMISSION: 09/11/2020 DATE OF EXPIRATION: 09/14/2020 REASON FOR ADMISSION: 49 years old male with no reported past medical history , was brought by paramedics due to shortness of breath. Patient apparently was tested Covid positive recently in August. Patient reported cough for several weeks, which gradually subsided. However he still felt short of breath, which got progressively worse over the last day. He denied fever and chills. He reported few bouts of nonbloody diarrhea in the past few days. He denied tobacco use, drug use or alcohol intake. He denied recent traveling. Upon evaluation patient was placed on nasal cannula. Respiratory status worsened , and he was changed to nonrebreather mask. Patient had low-grade fever 99.9 and was tachycardic with a heart rate of 108. EKG revealed sinus rhythm, no acute ischemic changes. Chest x-ray demonstrated extensive airspace opacity throughout the lungs bilaterally. Laboratory work-up revealed sodium 132 chloride 97 potassium 3.4., Glucose 222. Lactic acid 3.1. Calcium 7.7. Ferritin above 2000, CRP 35.9, LDH 9822. D-dimer 2.23. Troponin negative, pro BNP 295. AST 62 , ALT 46, lipase within normal limits . Urinalysis revealed no evidence of urinary tract infection , +3 protein. Rapid COVID-19 in ED was negative. In emergency department patient received steroid, empiric antibiotic /azithromycin and ceftriaxone, fluids, anticoagulation /Lovenox , Tylenol and admitted for further management. CONSULTANTS: pulmonary Dr. Dwain RODRIGUEZ specialist Dr. Sommer HOSPITAL COURSE: Patient admitted to isolation room. Patient started on remdesivir and steroids. Empiric antibiotic continued. DVT and GI prophylaxis provided. Supplemental oxygen titrated to keep pulse oximetry above 92%. Patient initially was placed on the BiPAP. Patient was maxed on the BiPAP with FiO2 100% ; patient was tachycardic , hypoxic with oxygen saturation in the low 80s. Patient subsequently required emergency oral intubation on 09/14. Patient subsequently transferred to ICU for further management. Later patient sustained asystolic cardiopulmonary arrest on 09/14. CODE BLUE was called. ACLS protocol initiated. Emergent central line was placed in the left femoral. Unfortunately, all resuscitative efforts appeared to be futile. Patient was pronounced on 09/14 at 9:16 AM. Cause of :cardiopulmonary arrest. FINAL DIAGNOSES: s/p cardiopulmonary arrest Acute hypoxemic respiratory failure (requiring BiPAP and then oral intubation) COVID-19 pneumonia ARDS I have been assigned to dictate discharge summary for this account. I was not involved in the patient's management. Carly Disla NP Sep 15, 2020 15:07
== END 2020-09-14 09:06 | disposition expired | DRG 137 ==
LOC: EDBD 16:04 → EMR 16:45 → 2W 17:29 → EDBEDREQ 17:36 → EDBEDREQSVC 17:42 → EDBEDREQ 17:42 → ICU 09-14 06:42
PROC: 5A09457 Assistance with Respiratory Ventilation, 24-96 Consecutive Hours, Continuous Positive Airway Pressure (ICD-10-PCS; principal; 2020-09-11)
PROC: 06HM33Z Insertion of Infusion Device into Right Femoral Vein, Percutaneous Approach (ICD-10-PCS; 2020-09-11)
PROC: 5A1935Z Respiratory Ventilation, Less than 24 Consecutive Hours (ICD-10-PCS; 2020-09-14)
PROC: 0BH17EZ Insertion of Endotracheal Airway into Trachea, Via Natural or Artificial Opening (ICD-10-PCS; 2020-09-14)
DX: U07.1 COVID-19 (principal); J12.89 Other viral pneumonia; J96.01 Acute respiratory failure with hypoxia
CPT/HCPCS: 36415; 71045; 80053; 81003; 82248; 82550; 82553; 82728; 82803; 82962; 83605; 83615; 83690; 83880; 84484; 85007; 85025; 85379; 85610; 85730; 86140; 86710; 87040; 92950; 94002; 94660; 94664; 96361; 96365; 96367; 96375; 99291; J0171; J3490; J7030; U0002